=== PATIENT | male | born 1995 | race Two or more races ===

== ENCOUNTER 2016-08-15 11:01 | Emergency (ER) | payer OTHER ==
[~2016-08-15] VITALS: Ht 172.7 cm; Wt 66.7 kg
[2016-08-15 11:01] VITALS: BP 140/88
[2016-08-15] MEDS ORDERED: IBUPROFEN 600 MG TABLET PO ONE ×2 (12:30→12:31)
--- NOTE | 2016-08-15 13:12 | NUR ---
medically cleared for booking. d/c to pd in stable condition.
== END 2016-08-15 13:14 ==
LOC: ER 11:06
DX: S93.402A Sprain of unspecified ligament of left ankle, initial encounter (principal); X37.1XXA Tornado, initial encounter; W18.39XA Other fall on same level, initial encounter; Y93.51 Activity, roller skating (inline) and skateboarding; Y92.89 Other specified places as the place of occurrence of the external cause; Y99.8 Other external cause status
CPT/HCPCS: 73610; 99284; A4606; Z7610

== ENCOUNTER 2021-02-20 17:51 | Emergency (ER) | payer MEDICAID, OTHER ==
[~2021-02-20] VITALS: Ht 170.2 cm; Wt 74.8 kg
[2021-02-20 18:00] VITALS: BP 128/77
--- NOTE | 2021-02-20 18:00 | NUR ---
BIB ra, was found in [facility] [place], aloc, with etoh noted on breath. On room air, breathing evenly and unlabored. connected to the monitor and pulse ox. kept comfortable, will continue to monitor accordingly.
[2021-02-20] MEDS ORDERED: ONDANSETRON HCL/PF 4 MG/2 ML VIAL ONE (18:26)
[2021-02-20] MEDS ORDERED: IV NS 0.9% 1,000 ML BAG IV ONE (18:30)
[2021-02-20] MEDS ORDERED: ONDANSETRON HCL/PF 4 MG/2 ML VIAL IVP ONE (18:30)
--- NOTE | 2021-02-20 19:20 | NUR ---
Patient eloped from facility. ER MD notified.
== END 2021-02-20 19:21 | disposition left against medical advice (07) ==
LOC: ER 17:53
DX: S00.03XA Contusion of scalp, initial encounter (principal); F10.129 Alcohol abuse with intoxication, unspecified; X58.XXXA Exposure to other specified factors, initial encounter; Y93.89 Activity, other specified; Y92.89 Other specified places as the place of occurrence of the external cause; Y99.8 Other external cause status; Y90.9 Presence of alcohol in blood, level not specified
CPT/HCPCS: 70450; 96361; 96374; 99284; J2405; J7030